=== PATIENT | female | born 1955 | race African-American/Black ===

== ENCOUNTER → 2017-02-19 | Outpatient (CLI) | payer MEDICARE, BC | END | disposition home or self-care (01) | LOC: US 08:04 | PROVIDERS: ATTEND Internal Medicine Gastroenterology | DX: B19.20 Unspecified viral hepatitis C without hepatic coma (principal) | CPT/HCPCS: 76700 ==

== ENCOUNTER → 2018-08-07 | Outpatient (CLI) | payer MEDICARE, BC | END | disposition home or self-care (01) | LOC: US 08:21 | PROVIDERS: ATTEND Internal Medicine Gastroenterology | DX: N18.9 Chronic kidney disease, unspecified (principal); R10.9 Unspecified abdominal pain; B18.2 Chronic viral hepatitis C | CPT/HCPCS: 76700 ==